=== PATIENT | female | born 1995 | race Hispanic/Latino ===

== ENCOUNTER 2020-01-01 13:26 | Emergency (ER) | payer SELFPAY ==
[~2020-01-01] VITALS: Ht 167.6 cm; Wt 81.6 kg
[2020-01-01 13:41] VITALS: BP 120/84
== END 2020-01-01 13:55 | disposition home or self-care (01) ==
LOC: ER 13:26
DX: J02.0 Streptococcal pharyngitis (principal)
CPT/HCPCS: 99282